=== PATIENT | female | born 1970 | race Caucasian/White ===

== ENCOUNTER 2022-01-06 18:08 | Inpatient (IN) ==
[~2022-01-06 18:08] MED LIST: ENOXAPARIN 30 MG/0.3 ML SYRINGE SUBCUT SCH
[2022-01-06] MEDS ORDERED: SODIUM CHLORIDE 0.9% 1,000 ML IV STA (19:27)
[2022-01-06 19:41] LABS: Basophils % 0.1 % (0.0-0.8); Hematocrit 55.2 VOL% (35.7-47.0); Immature Granulocytes % 0.6 %; Immature Granulocytes Absolute 0.09 #; Lymphocytes # 0.9 10*3/uL (1.4-4.0); Lymphocytes % 6.2 % (21.3-54.2); Mean Corpuscular HGB Conc 32.6 GM/DL (32-36); Mean Corpuscular Volume 88.6 FL (87-102); Monocytes # 0.8 10*3/uL (0.11-0.8); Monocytes % 5.4 % (1.7-12.7); Neutrophils % 87.7 % (38.7-73.9); Platelet Count 146 T/CUMM (130-400); Red Blood Count 6.23 MC/CUMM (3.8-5.5); Red Cell Distribution Width 19.9 % (9.3-17.3); White Blood Count 15.1 T/CUMM (4-12)
[2022-01-06 20:04] LABS: Acetaminophen < 2.0 UG/ML (10-30); Salicylate < 2.8 MG/DL (2.8-20)
[2022-01-06 20:35] LABS: Alanine Aminotransferase 22 U/L (13-56); Albumin 4.6 G/DL (3.4-5.0); Alkaline Phosphatase 72 U/L (45-117); Aspartate Amino Transferase 30 U/L (0-37); Blood Urea Nitrogen 54 MG/DL (7-18); Calcium 10.2 MG/DL (8.5-10.1); Carbon Dioxide 23 MMOL/L (21-32); Chloride 114 MMOL/L (98-107); Glucose 169 MG/DL (74-106); Osmolality,Calculated 319.7 MOS/KG (273-304); Potassium 3.8 MMOL/L (3.5-5.1); Sodium 152 MMOL/L (136-145); Total Protein 8.7 G/DL (6.4-8.2)
[2022-01-06 21:31] LABS: Hyaline Casts,Urine 190 /LPF (0-3); Mucus,Urine Moderate /LPF (Occasional); RBC,Urine 5096 /HPF (0-4); Squamous Epithelial Cell,Urine Few /HPF (0-10)
[2022-01-06 21:33] LABS: Bilirubin,Urine Moderate mg/dL (Negative); Blood, Urine Large mg/dL (Negative); Glucose,Urine (UA) Negative (Negative); Ketones,Urine Trace mg/dL (Negative); Nitrite,Urine Negative (Negative); Protein,Urine 100 mg/dL (Negative); Urine Appearance CLOUDY (Clear); Urine Color Red (Yellow); Urine Specific Gravity >= 1.030 (1.001-1.035); Urine Urobilinogen 0.2 eU/dL (<2.0); Urine pH 5.5 (4.5-8.0)
[2022-01-06 21:48] LABS: Barbiturates Screen,Urine Negative (Negative); Benzodiazepines Screen,Urine Negative (Negative); Cannabinoid Screen,Urine Negative (Negative); Opiate Screen,Urine Negative (Negative); Phencyclidine Screen,Urine Negative (Negative)
[2022-01-06] MEDS ORDERED: SODIUM CHLORIDE 0.9% 1,000 ML IV SCH (23:00)
[2022-01-06] MEDS ORDERED: ONDANSETRON 4 MG/2 ML VIAL IV PRN (23:35)
[2022-01-06] MEDS ORDERED: ACETAMINOPHEN 325 MG TABLET PO PRN (23:35)
[2022-01-07] MEDS: SODIUM CHLORIDE 0.9% 1,000 ML IV SCH ×4 (00:57→10:24)
[2022-01-07 05:22] LABS: Basophils % 0.1 % (0.0-0.8); Eosinophils % 0.1 % (0.00-10.9); Hematocrit 47.8 VOL% (35.7-47.0); Hemoglobin 14.8 GM/DL (12.0-16.0); Immature Granulocytes % 0.7 %; Lymphocytes # 1.7 10*3/uL (1.4-4.0); Lymphocytes % 12.1 % (21.3-54.2); Mean Corpuscular Volume 93.5 FL (87-102); Mean Platelet Volume 12.5 FL (9.6-12.0); Monocytes % 7.3 % (1.7-12.7); Neutrophils % 79.7 % (38.7-73.9); Platelet Count 142 T/CUMM (130-400); Red Blood Count 5.11 MC/CUMM (3.8-5.5); Red Cell Distribution Width 18.7 % (9.3-17.3); White Blood Count 13.9 T/CUMM (4-12)
[2022-01-07 05:51] LABS: Albumin 3.3 G/DL (3.4-5.0); Bilirubin,Total 0.7 MG/DL (0.20-1.00); Calcium 8.9 MG/DL (8.5-10.1); Osmolality,Calculated 313.7 MOS/KG (273-304); Potassium 3.9 MMOL/L (3.5-5.1); Risk Ratio 6.61; VLDL Cholesterol 28.6 MG/DL
[2022-01-07] MEDS ORDERED: THIAMINE INJ 100 MG, FOLIC ACID INJ 1 MG, MULTIVITAMIN INJ 10 ML in SODIUM CHLORIDE 0.9... IV ONE (08:44)
[2022-01-07] MEDS: DOCUSATE SODIUM 100 MG CAPSULE PO SCH ×2 (08:52→22:51)
[2022-01-07] MEDS: PANTOPRAZOLE 40 MG TABLET PO SCH (08:52)
[2022-01-07] MEDS: ENOXAPARIN 40 MG/0.4 ML SYRINGE SUBCUT SCH (08:52)
[2022-01-07] MEDS ORDERED: SODIUM CHLORIDE 0.45% 1,000 ML IV SCH (09:00)
[2022-01-07] MEDS ORDERED: FLUCONAZOLE 200 MG TABLET PO ONE (09:01)
[2022-01-07] MEDS: NYSTATIN 500,000 UNIT/5 ML UDCUP SWISH/SWAL SCH ×4 (10:20→22:52)
[2022-01-07 13:04] LABS: Bilirubin,Urine Small mg/dL (Negative); Blood, Urine Large mg/dL (Negative); Glucose,Urine (UA) Negative (Negative); Ketones,Urine Trace mg/dL (Negative); Nitrite,Urine Negative (Negative); Protein,Urine 30 mg/dL (Negative); Urine Appearance Clear (Clear); Urine Color Yellow (Yellow); Urine Urobilinogen 0.2 eU/dL (<2.0); Urine pH 5.5 (4.5-8.0)
[2022-01-07 13:08] LABS: Bacteria,Urine Occasional /HPF (Few); Hyaline Casts,Urine 7 /LPF (0-3); Mucus,Urine Few /LPF (Occasional); RBC,Urine 318 /HPF (0-4); Squamous Epithelial Cell,Urine Few /HPF (0-10)
[2022-01-08 06:01] LABS: Basophils % 0.1 % (0.0-0.8); Eosinophils % 0.1 % (0.00-10.9); Hematocrit 39.5 VOL% (35.7-47.0); Hemoglobin 12.1 GM/DL (12.0-16.0); Immature Granulocytes % 0.8 %; Immature Granulocytes Absolute 0.06 #; Lymphocytes % 28.1 % (21.3-54.2); Mean Corpuscular HGB Conc 30.6 GM/DL (32-36); Mean Corpuscular Volume 93.8 FL (87-102); Mean Platelet Volume 13.2 FL (9.6-12.0); Monocytes # 0.6 10*3/uL (0.11-0.8); Monocytes % 8.4 % (1.7-12.7); Neutrophils % 62.5 % (38.7-73.9); Platelet Count 130 T/CUMM (130-400); Red Blood Count 4.21 MC/CUMM (3.8-5.5); Red Cell Distribution Width 18.6 % (9.3-17.3); White Blood Count 7.1 T/CUMM (4-12)
[2022-01-08 06:24] LABS: Albumin 2.7 G/DL (3.4-5.0); Bilirubin,Total 0.7 MG/DL (0.20-1.00); Calcium 8.5 MG/DL (8.5-10.1); Osmolality,Calculated 308.6 MOS/KG (273-304); Potassium 3.3 MMOL/L (3.5-5.1); Total Protein 5.6 G/DL (6.4-8.2)
[2022-01-08] MEDS ORDERED: POTASSIUM CHLORIDE 20 MEQ TABLET PO ONE (08:37)
[2022-01-08] MEDS: CYPROHEPTADINE 4 MG TABLET PO SCH ×2 (09:10→20:23)
[2022-01-08] MEDS: ENOXAPARIN 40 MG/0.4 ML SYRINGE SUBCUT SCH (09:10)
[2022-01-08] MEDS: PANTOPRAZOLE 40 MG TABLET PO SCH (09:11)
[2022-01-08] MEDS: NYSTATIN 500,000 UNIT/5 ML UDCUP SWISH/SWAL SCH ×4 (09:11→20:22)
[2022-01-08] MEDS: DOCUSATE SODIUM 100 MG CAPSULE PO SCH ×2 (09:11→20:23)
[2022-01-08] MEDS: SODIUM CHLORIDE 0.45% 1,000 ML IV SCH ×2 (17:34→23:19)
[2022-01-09] MEDS: SODIUM CHLORIDE 0.45% 1,000 ML IV SCH ×4 (05:26→19:35)
[2022-01-09 05:56] LABS: Basophils % 0.2 % (0.0-0.8); Eosinophils # 0.1 10*3/uL (0.0-0.87); Eosinophils % 1.6 % (0.00-10.9); Hematocrit 36.5 VOL% (35.7-47.0); Immature Granulocytes % 0.6 %; Immature Granulocytes Absolute 0.03 #; Lymphocytes # 2.1 10*3/uL (1.4-4.0); Lymphocytes % 41.3 % (21.3-54.2); Mean Corpuscular HGB Conc 30.1 GM/DL (32-36); Mean Corpuscular Volume 93.6 FL (87-102); Mean Platelet Volume 12.4 FL (9.6-12.0); Monocytes # 0.4 10*3/uL (0.11-0.8); Neutrophils % 48.3 % (38.7-73.9); Platelet Count 122 T/CUMM (130-400); Red Cell Distribution Width 18.5 % (9.3-17.3)
[2022-01-09 06:10] LABS: Calcium 8.2 MG/DL (8.5-10.1); Potassium 3.1 MMOL/L (3.5-5.1)
[2022-01-09] MEDS: ATORVASTATIN 10 MG TABLET PO SCH (09:08)
[2022-01-09] MEDS: DOCUSATE SODIUM 100 MG CAPSULE PO SCH ×2 (09:09→20:41)
[2022-01-09] MEDS: POTASSIUM CHLORIDE 20 MEQ TABLET PO PRN ×2 (09:10→17:51)
[2022-01-09] MEDS: NYSTATIN 500,000 UNIT/5 ML UDCUP SWISH/SWAL SCH ×4 (09:11→20:41)
[2022-01-09] MEDS: PANTOPRAZOLE 40 MG TABLET PO SCH (09:11)
[2022-01-09] MEDS: CYPROHEPTADINE 4 MG TABLET PO SCH ×2 (09:11→20:41)
[2022-01-09] MEDS: ENOXAPARIN 40 MG/0.4 ML SYRINGE SUBCUT SCH (09:14)
[2022-01-09] MEDS: POTASSIUM CHLORIDE 10 MEQ TABLET PO SCH ×3 (15:13→17:56)
[2022-01-10] MEDS: POTASSIUM CHLORIDE 20 MEQ TABLET PO PRN (00:41)
[2022-01-10] MEDS: SODIUM CHLORIDE 0.45% 1,000 ML IV SCH (03:45)
[2022-01-10 04:53] LABS: Mucus,Urine Occasional /LPF (Occasional); RBC,Urine 2 /HPF (0-4); Squamous Epithelial Cell,Urine Occasional /HPF (0-10)
[2022-01-10 04:54] LABS: Urine Appearance Clear (Clear); Urine Color Yellow (Yellow); Urine pH 5.5 (4.5-8.0)
[2022-01-10 04:55] LABS: Bilirubin,Urine Negative (Negative); Blood, Urine Trace mg/dL (Negative); Glucose,Urine (UA) Negative (Negative); Ketones,Urine Negative (Negative); Nitrite,Urine Negative (Negative); Protein,Urine Negative (Negative); Urine Urobilinogen 0.2 eU/dL (<2.0)
[2022-01-10 06:09] LABS: Basophils % 0.2 % (0.0-0.8); Eosinophils # 0.1 10*3/uL (0.0-0.87); Eosinophils % 2.5 % (0.00-10.9); Hematocrit 35.9 VOL% (35.7-47.0); Hemoglobin 11.3 GM/DL (12.0-16.0); Immature Granulocytes % 0.7 %; Immature Granulocytes Absolute 0.03 #; Lymphocytes # 1.5 10*3/uL (1.4-4.0); Lymphocytes % 33.6 % (21.3-54.2); Mean Corpuscular HGB Conc 31.5 GM/DL (32-36); Mean Corpuscular Volume 92.1 FL (87-102); Mean Platelet Volume 13.5 FL (9.6-12.0); Monocytes # 0.4 10*3/uL (0.11-0.8); Monocytes % 8.8 % (1.7-12.7); Neutrophils % 54.2 % (38.7-73.9); Platelet Count 125 T/CUMM (130-400); Red Cell Distribution Width 18.1 % (9.3-17.3); White Blood Count 4.4 T/CUMM (4-12)
[2022-01-10 06:32] LABS: Albumin 2.4 G/DL (3.4-5.0); Bilirubin,Total 0.7 MG/DL (0.20-1.00); Calcium 8.1 MG/DL (8.5-10.1); Potassium 3.8 MMOL/L (3.5-5.1); Total Protein 4.9 G/DL (6.4-8.2)
[2022-01-10 06:54] LABS: Platelet Estimate Normal
[2022-01-10] MEDS: PANTOPRAZOLE 40 MG TABLET PO SCH (09:16)
[2022-01-10] MEDS: ATORVASTATIN 10 MG TABLET PO SCH (09:16)
[2022-01-10] MEDS: DOCUSATE SODIUM 100 MG CAPSULE PO SCH ×2 (09:16→20:58)
[2022-01-10] MEDS: CYPROHEPTADINE 4 MG TABLET PO SCH ×2 (09:16→20:58)
[2022-01-10] MEDS: NYSTATIN 500,000 UNIT/5 ML UDCUP SWISH/SWAL SCH ×4 (09:16→20:57)
[2022-01-10] MEDS: ENOXAPARIN 40 MG/0.4 ML SYRINGE SUBCUT SCH (09:42)
[2022-01-10] MEDS: DEXTROSE 5% NACL 0.45% 1,000 ML IV SCH ×2 (09:42→17:51)
[2022-01-11] MEDS: DEXTROSE 5% NACL 0.45% 1,000 ML IV SCH ×3 (01:51→17:30)
[2022-01-11] MEDS: ENOXAPARIN 40 MG/0.4 ML SYRINGE SUBCUT SCH (08:48)
[2022-01-11] MEDS: NYSTATIN 500,000 UNIT/5 ML UDCUP SWISH/SWAL SCH ×4 (08:48→20:46)
[2022-01-11] MEDS: PANTOPRAZOLE 40 MG TABLET PO SCH (08:48)
[2022-01-11] MEDS: DOCUSATE SODIUM 100 MG CAPSULE PO SCH ×2 (08:49→20:47)
[2022-01-11] MEDS: CYPROHEPTADINE 4 MG TABLET PO SCH ×2 (08:49→20:46)
[2022-01-11] MEDS: ATORVASTATIN 10 MG TABLET PO SCH (08:49)
[2022-01-11 10:53] LABS: Calcium 7.9 MG/DL (8.5-10.1); Osmolality,Calculated 288.6 MOS/KG (273-304); Potassium 3.4 MMOL/L (3.5-5.1)
[2022-01-12] MEDS: DEXTROSE 5% NACL 0.45% 1,000 ML IV SCH ×3 (01:05→18:27)
[2022-01-12] MEDS: DOCUSATE SODIUM 100 MG CAPSULE PO SCH ×2 (09:49→21:16)
[2022-01-12] MEDS: NYSTATIN 500,000 UNIT/5 ML UDCUP SWISH/SWAL SCH ×4 (09:49→21:16)
[2022-01-12] MEDS: ATORVASTATIN 10 MG TABLET PO SCH (09:49)
[2022-01-12] MEDS: CYPROHEPTADINE 4 MG TABLET PO SCH ×2 (09:49→21:16)
[2022-01-12] MEDS: PANTOPRAZOLE 40 MG TABLET PO SCH (09:49)
[2022-01-12] MEDS: ENOXAPARIN 40 MG/0.4 ML SYRINGE SUBCUT SCH (09:50)
[2022-01-13] MEDS: DEXTROSE 5% NACL 0.45% 1,000 ML IV SCH ×3 (07:28→16:27)
[2022-01-13] MEDS: DOCUSATE SODIUM 100 MG CAPSULE PO SCH ×2 (09:02→20:13)
[2022-01-13] MEDS: ATORVASTATIN 10 MG TABLET PO SCH (09:02)
[2022-01-13] MEDS: POTASSIUM CHLORIDE 20 MEQ TABLET PO PRN ×4 (09:02→21:43)
[2022-01-13] MEDS: CYPROHEPTADINE 4 MG TABLET PO SCH ×2 (09:02→20:13)
[2022-01-13] MEDS: NYSTATIN 500,000 UNIT/5 ML UDCUP SWISH/SWAL SCH ×4 (09:03→20:13)
[2022-01-13] MEDS: ENOXAPARIN 40 MG/0.4 ML SYRINGE SUBCUT SCH (09:03)
[2022-01-13] MEDS: PANTOPRAZOLE 40 MG TABLET PO SCH (09:03)
[2022-01-13 12:44] LABS: Basophils % 0.2 % (0.0-0.8); Eosinophils # 0.1 10*3/uL (0.0-0.87); Eosinophils % 1.8 % (0.00-10.9); Hematocrit 37.9 VOL% (35.7-47.0); Hemoglobin 12.3 GM/DL (12.0-16.0); Immature Granulocytes % 0.7 %; Immature Granulocytes Absolute 0.04 #; Lymphocytes # 1.1 10*3/uL (1.4-4.0); Lymphocytes % 19.4 % (21.3-54.2); Mean Corpuscular HGB Conc 32.5 GM/DL (32-36); Mean Platelet Volume 12.2 FL (9.6-12.0); Monocytes # 0.5 10*3/uL (0.11-0.8); Monocytes % 8.1 % (1.7-12.7); Neutrophils % 69.8 % (38.7-73.9); Platelet Count 142 T/CUMM (130-400); Red Blood Count 4.26 MC/CUMM (3.8-5.5); Red Cell Distribution Width 18.6 % (9.3-17.3); White Blood Count 5.6 T/CUMM (4-12)
[2022-01-13 13:19] LABS: Calcium 8.3 MG/DL (8.5-10.1); Osmolality,Calculated 288.4 MOS/KG (273-304); Potassium 3.1 MMOL/L (3.5-5.1)
[2022-01-14] MEDS: POTASSIUM CHLORIDE 20 MEQ TABLET PO PRN (00:10)
[2022-01-14] MEDS: ATORVASTATIN 10 MG TABLET PO SCH (08:25)
[2022-01-14] MEDS: DOCUSATE SODIUM 100 MG CAPSULE PO SCH (08:25)
[2022-01-14] MEDS: PANTOPRAZOLE 40 MG TABLET PO SCH (08:25)
[2022-01-14] MEDS: CYPROHEPTADINE 4 MG TABLET PO SCH (08:25)
[2022-01-14] MEDS: NYSTATIN 500,000 UNIT/5 ML UDCUP SWISH/SWAL SCH ×2 (08:25→12:09)
[2022-01-14] MEDS: ENOXAPARIN 40 MG/0.4 ML SYRINGE SUBCUT SCH (08:25)
[2022-01-14 11:41] VITALS: BP 115/71
[2022-01-14] MEDS ORDERED: ESCITALOPRAM 10 MG TABLET PO SCH (12:30)
== END 2022-01-14 15:00 | DRG 641 ==
LOC: N.ED 18:08 → N.EDINP 18:08 → N.5E 22:12
PROVIDERS: ADMIT Family Medicine; ATTEND Family Medicine